=== PATIENT | male | born 1940 | race Caucasian/White ===

== ENCOUNTER 2020-10-28 13:42 | Inpatient (IN) | payer MEDICARE, OTHER ==
[~2020-10-28] VITALS: Ht 182.9 cm; Wt 110.2 kg
[~2020-10-28 13:42] MED LIST: ACARBOSE100 MG PO; ACCU-CHEK AVIV1 EACH; ASPIR 8181 MG PO; DAILY VITAMIN1 EAC3 PO; DOXAZOSIN MESYLA2 MG PO; GLIPIZIDE5 MG PO; IBUPROFEN600 MG PO; LISINOPRIL10 MG PO; METFORMIN HCL500 MG PO; PHENYTOIN SODI100 MG PO; VITAMIN D2000 UNIT PO
[2020-10-28] MEDS ORDERED: SODIUM CHLORIDE 0.9% 1000ML 1,000 ML IV STA (14:09)
[2020-10-28] MEDS ORDERED: ONDANSETRON HCL INJ 2MG/ML 2ML 2 MG/ML VIAL IV NR (14:09)
[2020-10-28] MEDS ORDERED: PANTOPRAZOLE 40 MG 10ML VIAL IV NR (14:15)
[2020-10-28 14:40] LABS: BASOPHILS % 0.3 % (0.0-1.0); EOSINOPHILS % 0.1 % (0.0-6.0); LYMPHOCYTES # (AUTO) 0.7 (1.0-3.2); LYMPHOCYTES % 4.3 % (18.0-39.1); MEAN CORPUSCULAR HEMOGLOBIN 31.7 pg (28-32); MEAN CORPUSCULAR HGB CONC 33.3 g/dL (31-35); MEAN CORPUSCULAR VOLUME 95.1 fL (81-99); MONOCYTES # (AUTO) 1.5 (0.2-0.8); MONOCYTES % 9.8 % (4.4-11.3); NEUTROPHILS # (AUTO) 12.7 (2.1-6.9); NEUTROPHILS % 84.9 % (38.7-80.0); PLATELET COUNT 322 x10e3/uL (140-360); RED CELL DISTRIBUTION WIDTH 12.9 % (11.7-14.4)
[2020-10-28] MEDS ORDERED: ZESTRIL20 MG PO (14:43)
[2020-10-28] MEDS ORDERED: OXYBUTYNIN CHLOR5 MG PO (14:45)
[2020-10-28] MEDS ORDERED: LOPID600 MG PO (14:46)
[2020-10-28 14:47] LABS: INR 1.25; PROTHROMBIN TIME 16.5 seconds (11.9-14.5)
[2020-10-28 14:48] LABS: PARTIAL THROMBOPLASTIN TIME 31.4 seconds (23.8-35.5)
[2020-10-28 14:58] LABS: ALBUMIN 3.4 g/dL (3.5-5.0); ALBUMIN/GLOBULIN RATIO 0.9 (0.8-2.0); ANION GAP 30.9 mmol/L (8-16); CALCIUM 9.1 mg/dL (8.4-10.2); CREATININE, SERUM 4.14 mg/dL (0.72-1.25); POTASSIUM 4.9 mmol/L (3.5-5.1)
[2020-10-28 15:03] LABS: B-TYPE NATRIURETIC PEPTIDE2 109.8 pg/mL (0-100)
[2020-10-28 15:04] LABS: CREATINE KINASE MB 11.5 ng/mL (0-5.0)
[2020-10-28] MEDS ORDERED: SODIUM CHLORIDE 0.9% 500ML 500 ML IV ONE (15:15)
[2020-10-28] MEDS ORDERED: PIPERACILLIN/TAZOBACTAM 2.25 GM in SODIUM CHLORIDE 0.9% 50ML 50 ML IV ONE (15:30)
[2020-10-28] MEDS ORDERED: DEXTROSE 50% SYRINGE 50 ML IV PRN (17:00)
[2020-10-28] MEDS ORDERED: ONDANSETRON HCL INJ 2MG/ML 2ML 2 MG/ML VIAL IV PRN (17:00)
[2020-10-28 17:28] LABS: CLARITY,URINE CLOUDY (CLEAR); COLOR,URINE RED (YELLOW); KETONES,URINE TRACE (NEGATIVE); LEUKOCYTE ESTERASE ,URINE NEGATIVE (NEGATIVE); NITRITE,URINE NEGATIVE (NEGATIVE); PROTEIN,URINE DIPSTICK 2+ (NEGATIVE); URINE UROBILINOGEN 0.2 mg/dL (0.2 - 1)
[2020-10-28 17:29] LABS: BACTERIA,URINE FEW /HPF; EPITHELIAL CELLS,URINE FEW /LPF; RBC,URINE >50 /HPF (0-5)
[2020-10-28] MEDS: INSULIN LISPRO 100 UNIT/1 ML 3ML VIAL SQ SCH ×2 (18:15→20:22)
[2020-10-28] MEDS: SODIUM CHLORIDE 0.9% 1000ML 1,000 ML IV SCH (18:43)
[2020-10-28 19:10] VITALS: BP 136/89
[2020-10-28 19:28] VITALS: BP 111/98
[2020-10-28 20:07] VITALS: BP 111/98
[2020-10-28] MEDS ORDERED: PIPERACILLIN/TAZOBACTAM SOD 2.25 GM VIAL ONE (20:26)
[2020-10-28] MEDS ORDERED: SODIUM CHLORIDE 0.9% 50ML 50 ML ONE (20:27)
[2020-10-28] MEDS ORDERED: PIPERACILLIN/TAZO 2.25 GM 50 ML IV SCH (23:00)
[2020-10-28] MEDS: PIPERACILLIN/TAZOBACTAM 2.25 GM in SODIUM CHLORIDE 0.9% 50ML 50 ML IV SCH (23:00)
[2020-10-29] VITALS (9 sets, daily range): BP systolic 108–157; BP diastolic 61–72
[2020-10-29] MEDS ORDERED: DEXTROSE 50% SYRINGE 50 ML IV PRN (00:45)
[2020-10-29] MEDS ORDERED: HYDRALAZINE HCL 20 MG/ML VIAL IV PRN (00:45)
[2020-10-29] MEDS ORDERED: LIDOCAINE 4% PATCH TP PRN (00:45)
[2020-10-29] MEDS ORDERED: ONDANSETRON HCL INJ 2MG/ML 2ML 2 MG/ML VIAL IV PRN (00:45)
[2020-10-29] MEDS ORDERED: BENZONATATE 100 MG CAP PO PRN (00:45)
[2020-10-29] MEDS ORDERED: DIPHENHYDRAMINE HCL 25 MG CAP PO PRN (00:45)
[2020-10-29] MEDS ORDERED: ALBUTEROL/IPRATROPIUM 3 ML NEB NEB PRN (00:45)
[2020-10-29] MEDS ORDERED: POTASSIUM CHLORIDE 20 MEQ TAB CR PO PRN (00:45)
[2020-10-29] MEDS ORDERED: SIMETHICONE 80 MG CHEW PO PRN (00:45)
[2020-10-29 01:05] LABS: CREATINE KINASE MB 10.7 ng/mL (0-5.0)
[2020-10-29] MEDS: DOCUSATE SODIUM 100 MG CAP PO PRN (03:03)
[2020-10-29] MEDS ORDERED: PIPERACILLIN/TAZOBACTAM SOD 2.25 GM VIAL ONE ×3 (05:14→21:05)
[2020-10-29] MEDS ORDERED: SODIUM CHLORIDE 0.9% 50ML 50 ML ONE ×3 (05:15→21:06)
[2020-10-29] MEDS: PIPERACILLIN/TAZOBACTAM 2.25 GM in SODIUM CHLORIDE 0.9% 50ML 50 ML IV SCH ×3 (05:18→21:17)
[2020-10-29] MEDS: SODIUM CHLORIDE 0.9% 1000ML 1,000 ML IV SCH ×2 (05:21→21:17)
[2020-10-29 05:53] LABS: BASOPHILS % 0.2 % (0.0-1.0); EOSINOPHILS % 0.2 % (0.0-6.0); HEMATOCRIT 34.8 % (38.2-49.6); HEMOGLOBIN 11.6 g/dL (14.0-18.0); LYMPHOCYTES # (AUTO) 0.6 (1.0-3.2); LYMPHOCYTES % 5.4 % (18.0-39.1); MEAN CORPUSCULAR HGB CONC 33.3 g/dL (31-35); MEAN CORPUSCULAR VOLUME 95.9 fL (81-99); MONOCYTES # (AUTO) 1.2 (0.2-0.8); MONOCYTES % 10.8 % (4.4-11.3); NEUTROPHILS # (AUTO) 8.8 (2.1-6.9); NEUTROPHILS % 82.9 % (38.7-80.0); PLATELET COUNT 235 x10e3/uL (140-360); RED BLOOD COUNT 3.63 x10e6/uL (4.3-5.7); RED CELL DISTRIBUTION WIDTH 12.8 % (11.7-14.4)
[2020-10-29 06:17] LABS: ALBUMIN 2.7 g/dL (3.5-5.0); ANION GAP 22.5 mmol/L (8-16); BILIRUBIN,DIRECT 0.4 mg/dL (0.0-0.5); CALCIUM 8.5 mg/dL (8.4-10.2); CHOL/HDL RATIO 4.5 (3.9-4.7); CREATININE, SERUM 3.37 mg/dL (0.72-1.25); MAGNESIUM 2.1 MG/DL (1.3-2.1); PHOSPHORUS 5.5 MG/DL (2.3-4.7); POTASSIUM 4.5 mmol/L (3.5-5.1)
[2020-10-29 06:45] LABS: CREATINE KINASE MB 7.8 ng/mL (0-5.0); THYROID STIMULATING HORMONE 0.867 uIU/mL (0.350-4.940)
[2020-10-29] MEDS: INSULIN LISPRO 100 UNIT/1 ML 3ML VIAL SQ SCH ×4 (07:30→21:20)
[2020-10-29] MEDS: PANTOPRAZOLE SOD 40 MG TABEC PO SCH (08:38)
[2020-10-29] MEDS ORDERED: TAMSULOSIN HCL 0.4 MG CAP PO SCH (13:15)
[2020-10-29] MEDS: TAMSULOSIN HCL 0.4 MG CAP PO SCH (15:02)
[2020-10-29] MEDS: FINASTERIDE 5 MG TAB PO SCH (15:02)
[2020-10-29] MEDS: HYDROCODONE/APAP 5MG-325MG TAB PO PRN (15:10)
[2020-10-29 17:35] LABS: CREATINE KINASE MB 4.8 ng/mL (0-5.0)
[2020-10-29 17:50] LABS: ANION GAP 19.6 mmol/L (8-16); CALCIUM 8.5 mg/dL (8.4-10.2); CREATININE, SERUM 2.8 mg/dL (0.72-1.25); POTASSIUM 4.6 mmol/L (3.5-5.1)
[2020-10-29] MEDS ORDERED: METOPROLOL SUCCINATE 25 MG TAB XL PO ONE (21:45)
[2020-10-30] VITALS (7 sets, daily range): BP systolic 120–148; BP diastolic 63–101
[2020-10-30] MEDS: ACETAMINOPHEN 325 MG TAB PO PRN (04:25)
[2020-10-30] MEDS: DOCUSATE SODIUM 100 MG CAP PO PRN (05:30)
[2020-10-30] MEDS: PIPERACILLIN/TAZOBACTAM 2.25 GM in SODIUM CHLORIDE 0.9% 50ML 50 ML IV SCH ×3 (06:15→21:55)
[2020-10-30] MEDS ORDERED: PIPERACILLIN/TAZOBACTAM SOD 2.25 GM VIAL ONE ×3 (06:19→21:39)
[2020-10-30] MEDS ORDERED: SODIUM CHLORIDE 0.9% 50ML 50 ML ONE ×2 (06:21→21:40)
[2020-10-30] MEDS: INSULIN LISPRO 100 UNIT/1 ML 3ML VIAL SQ SCH ×4 (07:30→22:01)
[2020-10-30] MEDS: OXYBUTYNIN CHLORIDE XL 5 MG TAB PO SCH (08:31)
[2020-10-30] MEDS: FINASTERIDE 5 MG TAB PO SCH (08:31)
[2020-10-30] MEDS: METOPROLOL SUCCINATE 25 MG TAB XL PO SCH (08:31)
[2020-10-30] MEDS: PANTOPRAZOLE SOD 40 MG TABEC PO SCH (08:31)
[2020-10-30] MEDS: PHENYTOIN SODIUM EXT REL 100 MG CAP PO SCH (08:31)
[2020-10-30] MEDS ORDERED: ASPIRIN 81 MG CHEW TAB PO SCH (09:00)
[2020-10-30] MEDS ORDERED: OXYBUTYNIN CHLORIDE 5 MG TAB PO SCH (09:00)
[2020-10-30] MEDS ORDERED: SODIUM CHLORIDE 0.9% 500ML 500 ML ONE (10:21)
[2020-10-30 12:31] LABS: BASOPHILS % 0.3 % (0.0-1.0); EOSINOPHILS % 0.2 % (0.0-6.0); HEMATOCRIT 37.1 % (38.2-49.6); HEMOGLOBIN 12.2 g/dL (14.0-18.0); LYMPHOCYTES # (AUTO) 0.6 (1.0-3.2); LYMPHOCYTES % 6.5 % (18.0-39.1); MEAN CORPUSCULAR HEMOGLOBIN 31.5 pg (28-32); MEAN CORPUSCULAR HGB CONC 32.9 g/dL (31-35); MEAN CORPUSCULAR VOLUME 95.9 fL (81-99); MONOCYTES # (AUTO) 0.9 (0.2-0.8); MONOCYTES % 9.1 % (4.4-11.3); NEUTROPHILS % 83.5 % (38.7-80.0); PLATELET COUNT 239 x10e3/uL (140-360); RED BLOOD COUNT 3.87 x10e6/uL (4.3-5.7); RED CELL DISTRIBUTION WIDTH 12.8 % (11.7-14.4)
[2020-10-30 12:57] LABS: ANION GAP 21.3 mmol/L (8-16); CALCIUM 9.3 mg/dL (8.4-10.2); CREATININE, SERUM 1.86 mg/dL (0.72-1.25); POTASSIUM 4.3 mmol/L (3.5-5.1)
[2020-10-30] MEDS ORDERED: SODIUM CHLORIDE 0.9% 50ML 100 ML ONE (13:25)
[2020-10-30] MEDS: SODIUM CHLORIDE 0.9% 1000ML 1,000 ML IV SCH (21:55)
[2020-10-30] MEDS: TAMSULOSIN HCL 0.4 MG CAP PO SCH (21:55)
[2020-10-30] MEDS: HYDROCODONE/APAP 5MG-325MG TAB PO PRN (21:59)
[2020-10-31] VITALS (8 sets, daily range): BP systolic 133–155; BP diastolic 82–102
[2020-10-31] MEDS: ACETAMINOPHEN 325 MG TAB PO PRN ×2 (00:50→12:34)
[2020-10-31] MEDS: HYDROCODONE/APAP 5MG-325MG TAB PO PRN ×3 (04:00→23:15)
[2020-10-31] MEDS ORDERED: PIPERACILLIN/TAZOBACTAM SOD 2.25 GM VIAL ONE ×3 (04:17→20:01)
[2020-10-31] MEDS ORDERED: SODIUM CHLORIDE 0.9% 50ML 50 ML ONE ×3 (04:17→20:03)
[2020-10-31 05:42] LABS: BASOPHILS % 0.5 % (0.0-1.0); EOSINOPHILS # (AUTO) 0.2 (0.0-0.4); EOSINOPHILS % 2.5 % (0.0-6.0); HEMATOCRIT 35.1 % (38.2-49.6); HEMOGLOBIN 11.8 g/dL (14.0-18.0); LYMPHOCYTES # (AUTO) 0.8 (1.0-3.2); LYMPHOCYTES % 13.1 % (18.0-39.1); MEAN CORPUSCULAR HEMOGLOBIN 31.7 pg (28-32); MEAN CORPUSCULAR HGB CONC 33.6 g/dL (31-35); MEAN CORPUSCULAR VOLUME 94.4 fL (81-99); MONOCYTES # (AUTO) 0.6 (0.2-0.8); MONOCYTES % 10.5 % (4.4-11.3); NEUTROPHILS # (AUTO) 4.5 (2.1-6.9); NEUTROPHILS % 73.1 % (38.7-80.0); PLATELET COUNT 227 x10e3/uL (140-360); RED BLOOD COUNT 3.72 x10e6/uL (4.3-5.7); RED CELL DISTRIBUTION WIDTH 12.6 % (11.7-14.4)
[2020-10-31 06:00] LABS: ANION GAP 14.8 mmol/L (8-16); CALCIUM 8.6 mg/dL (8.4-10.2); CREATININE, SERUM 1.27 mg/dL (0.72-1.25); POTASSIUM 3.8 mmol/L (3.5-5.1)
[2020-10-31] MEDS: PIPERACILLIN/TAZOBACTAM 2.25 GM in SODIUM CHLORIDE 0.9% 50ML 50 ML IV SCH ×3 (06:38→21:50)
[2020-10-31] MEDS: INSULIN LISPRO 100 UNIT/1 ML 3ML VIAL SQ SCH ×4 (07:30→21:00)
[2020-10-31] MEDS: PANTOPRAZOLE SOD 40 MG TABEC PO SCH (07:30)
[2020-10-31] MEDS: PHENYTOIN SODIUM EXT REL 100 MG CAP PO SCH (09:00)
[2020-10-31] MEDS: OXYBUTYNIN CHLORIDE XL 5 MG TAB PO SCH (09:00)
[2020-10-31] MEDS: FINASTERIDE 5 MG TAB PO SCH (09:00)
[2020-10-31] MEDS: METOPROLOL SUCCINATE 25 MG TAB XL PO SCH (09:00)
[2020-10-31] MEDS ORDERED: METOPROLOL SUCCINATE 25 MG TAB XL PO ONE ×2 (09:50→10:45)
[2020-10-31] MEDS: SODIUM CHLORIDE 0.9% 1000ML 1,000 ML IV SCH (10:46)
[2020-10-31] MEDS ORDERED: B&O 60MG R/S 60 MG SUPP PR ONE (11:45)
[2020-10-31] MEDS: METOPROLOL TARTRATE 50 MG TAB PO SCH ×2 (14:00→21:50)
[2020-10-31] MEDS ORDERED: B&O 60MG R/S 60 MG SUPP PR PRN (15:15)
[2020-10-31] MEDS: B&O 60MG R/S 60 MG SUPP PR PRN (20:10)
[2020-10-31] MEDS: TAMSULOSIN HCL 0.4 MG CAP PO SCH (21:00)
[2020-10-31] MEDS: MORPHINE SULFATE INJ 2 MG/ML SYR IV PRN (22:00)
[2020-11-01] VITALS (9 sets, daily range): BP systolic 114–154; BP diastolic 56–91
[2020-11-01] MEDS ORDERED: PIPERACILLIN/TAZOBACTAM SOD 2.25 GM VIAL ONE ×3 (04:40→21:05)
[2020-11-01] MEDS ORDERED: SODIUM CHLORIDE 0.9% 50ML 50 ML ONE ×3 (04:41→21:05)
[2020-11-01] MEDS: MORPHINE SULFATE INJ 2 MG/ML SYR IV PRN (04:45)
[2020-11-01 05:16] LABS: BASOPHILS % 0.5 % (0.0-1.0); EOSINOPHILS # (AUTO) 0.3 (0.0-0.4); EOSINOPHILS % 4.3 % (0.0-6.0); HEMATOCRIT 35.8 % (38.2-49.6); HEMOGLOBIN 11.9 g/dL (14.0-18.0); LYMPHOCYTES # (AUTO) 1.2 (1.0-3.2); LYMPHOCYTES % 19.7 % (18.0-39.1); MEAN CORPUSCULAR HEMOGLOBIN 31.6 pg (28-32); MEAN CORPUSCULAR HGB CONC 33.2 g/dL (31-35); MEAN CORPUSCULAR VOLUME 95.2 fL (81-99); MONOCYTES # (AUTO) 0.6 (0.2-0.8); MONOCYTES % 10.4 % (4.4-11.3); NEUTROPHILS # (AUTO) 3.9 (2.1-6.9); NEUTROPHILS % 64.4 % (38.7-80.0); PLATELET COUNT 253 x10e3/uL (140-360); RED BLOOD COUNT 3.76 x10e6/uL (4.3-5.7); RED CELL DISTRIBUTION WIDTH 12.3 % (11.7-14.4)
[2020-11-01] MEDS: PIPERACILLIN/TAZOBACTAM 2.25 GM in SODIUM CHLORIDE 0.9% 50ML 50 ML IV SCH ×3 (05:42→22:00)
[2020-11-01] MEDS: METOPROLOL TARTRATE 50 MG TAB PO SCH ×3 (05:42→22:00)
[2020-11-01 05:49] LABS: ANION GAP 12.9 mmol/L (8-16); BLOOD UREA NITROGEN 30 mg/dL (7-26); BUN/CREATININE RATIO 27 (6-25); CALCIUM 8.3 mg/dL (8.4-10.2); CARBON DIOXIDE 21 mmol/L (22-29); CHLORIDE 112 mmol/L (98-107); CREATININE, SERUM 1.12 mg/dL (0.72-1.25); EST GLOMERULAR FILTRATION RATE > 60 ML/MIN (60-); GLUCOSE 152 mg/dL (74-118); POTASSIUM 3.9 mmol/L (3.5-5.1); SODIUM 142 mmol/L (136-145)
[2020-11-01] MEDS: SODIUM CHLORIDE 0.9% 1000ML 1,000 ML IV SCH (06:55)
[2020-11-01] MEDS: INSULIN LISPRO 100 UNIT/1 ML 3ML VIAL SQ SCH ×4 (07:30→21:00)
[2020-11-01] MEDS: PANTOPRAZOLE SOD 40 MG TABEC PO SCH (07:30)
[2020-11-01] MEDS: B&O 60MG R/S 60 MG SUPP PR PRN (08:00)
[2020-11-01] MEDS: OXYBUTYNIN CHLORIDE XL 5 MG TAB PO SCH (09:00)
[2020-11-01] MEDS: FINASTERIDE 5 MG TAB PO SCH (09:00)
[2020-11-01] MEDS: PHENYTOIN SODIUM EXT REL 100 MG CAP PO SCH (09:00)
[2020-11-01] MEDS: HYDROCODONE/APAP 5MG-325MG TAB PO PRN (12:00)
[2020-11-01] MEDS: TAMSULOSIN HCL 0.4 MG CAP PO SCH (21:00)
[2020-11-02] MEDS: HYDROCODONE/APAP 5MG-325MG TAB PO PRN (02:33)
[2020-11-02] MEDS ORDERED: PIPERACILLIN/TAZOBACTAM SOD 2.25 GM VIAL ONE ×2 (03:49→11:38)
[2020-11-02] MEDS ORDERED: SODIUM CHLORIDE 0.9% 50ML 50 ML ONE ×2 (03:51→11:38)
[2020-11-02 04:02] VITALS: BP 154/76
[2020-11-02] MEDS: SODIUM CHLORIDE 0.9% 1000ML 1,000 ML IV SCH (05:16)
[2020-11-02 05:46] LABS: HEMATOCRIT 37.1 % (38.2-49.6); HEMOGLOBIN 12.5 g/dL (14.0-18.0)
[2020-11-02] MEDS: PIPERACILLIN/TAZOBACTAM 2.25 GM in SODIUM CHLORIDE 0.9% 50ML 50 ML IV SCH ×2 (06:07→13:36)
[2020-11-02] MEDS: METOPROLOL TARTRATE 50 MG TAB PO SCH (06:08)
[2020-11-02 06:12] LABS: BLOOD UREA NITROGEN 21 mg/dL (7-26); BUN/CREATININE RATIO 21 (6-25); CALCIUM 8.4 mg/dL (8.4-10.2); CARBON DIOXIDE 21 mmol/L (22-29); CHLORIDE 108 mmol/L (98-107); CREATININE, SERUM 0.98 mg/dL (0.72-1.25); EST GLOMERULAR FILTRATION RATE > 60 ML/MIN (60-); GLUCOSE 168 mg/dL (74-118); SODIUM 141 mmol/L (136-145)
[2020-11-02] MEDS: INSULIN LISPRO 100 UNIT/1 ML 3ML VIAL SQ SCH ×2 (08:00→12:00)
[2020-11-02 08:10] VITALS: BP 154/76
[2020-11-02 08:56] VITALS: BP 159/90
[2020-11-02] MEDS: FINASTERIDE 5 MG TAB PO SCH (08:58)
[2020-11-02] MEDS: PHENYTOIN SODIUM EXT REL 100 MG CAP PO SCH (08:58)
[2020-11-02] MEDS: PANTOPRAZOLE SOD 40 MG TABEC PO SCH (08:58)
[2020-11-02] MEDS: OXYBUTYNIN CHLORIDE XL 5 MG TAB PO SCH (08:58)
[2020-11-02] MEDS ORDERED: ONDANSETRON HCL 4 MG ORAL DISINTEGRATING TAB PO PRN (13:00)
[2020-11-02] MEDS ORDERED: METOPROLOL TARTRATE 50 MG TAB PO SCH (17:00)
[2020-11-03] MEDS ORDERED: ASPIRIN 81 MG ENTERIC COATED PO SCH (09:00)
== END 2020-11-02 16:18 | DRG 682 ==
LOC: ER 13:50 → ERHOLD 14:14 → MED/SURG2 18:30
PROVIDERS: ADMIT Internal Medicine; ATTEND Internal Medicine
DX: N17.9 Acute kidney failure, unspecified (principal); G93.41 Metabolic encephalopathy; M62.82 Rhabdomyolysis; L03.116 Cellulitis of left lower limb; K57.92 Diverticulitis of intestine, part unspecified, without perforation or abscess without bleeding; I48.92 Unspecified atrial flutter; G40.909 Epilepsy, unspecified, not intractable, without status epilepticus; E86.0 Dehydration; Z20.822 Contact with and (suspected) exposure to COVID-19; Z87.442 Personal history of urinary calculi; N26.1 Atrophy of kidney (terminal); N20.0 Calculus of kidney; E66.9 Obesity, unspecified; Z68.33 Body mass index [BMI] 33.0-33.9, adult; N28.1 Cyst of kidney, acquired; D64.9 Anemia, unspecified; N40.1 Benign prostatic hyperplasia with lower urinary tract symptoms; R33.8 Other retention of urine; Z79.01 Long term (current) use of anticoagulants; I12.9 Hypertensive chronic kidney disease with stage 1 through stage 4 chronic kidney disease, or unspecified chronic kidney disease; N18.9 Chronic kidney disease, unspecified; E11.22 Type 2 diabetes mellitus with diabetic chronic kidney disease; Z91.81 History of falling
CPT/HCPCS: 36415; 51700; 70450; 71045; 72125; 72131; 72194; 74176; 78580; 80048; 80053; 80061; 80076; 80185; 81001; 82150; 82550; 82553; 82948; 83036; 83605; 83690; 83735; 83880; 83970; 84100; 84443; 84484; 84550; 85014; 85018; 85025; 85610; 85730; 87040; 87086; 93005; 93306; 93925; 93970; 96361; 97139; 99251; 99285; A9540; J2270; J2405; J2543; J7030; J7040; U0002